=== PATIENT | male | born 1990 | race Two or more races ===

== ENCOUNTER 2019-09-20 04:47 | Inpatient (IN) | payer MEDICAID ==
[~2019-09-20] VITALS: Ht 180.3 cm; Wt 85.4 kg
[2019-09-20] VITALS (11 sets, daily range): BP systolic 125–164; BP diastolic 70–103
[2019-09-20 05:44] LABS: BASOPHILS % (AUTO) 0.2 % (0.0-2.0); EOSINOPHILS % (AUTO) 0.6 % (1.0-6.0); HEMATOCRIT 39.8 % (41-53); HEMOGLOBIN 13.8 g/dL (13.5-17.5); LYMPHOCYTES # (AUTO) 1.5 K/uL (1.0-4.8); LYMPHOCYTES % (AUTO) 15.8 % (22.0-44.0); MEAN CORPUSCULAR HGB CONC 34.7 G/dL (31.0-37.0); MEAN CORPUSCULAR VOLUME 92 fL (80-100); MONOCYTES # (AUTO) 1.1 K/uL (0.1-1.0); NEUTROPHILS # (AUTO) 6.9 K/uL (1.8-7.7); NEUTROPHILS % (AUTO) 72.4 % (40.0-70.0); PLATELET COUNT (AUTO) 161 K/uL (150-450); RED BLOOD CELL COUNT(AUTO) 4.32 MIL/uL (4.50-5.90); RED CELL DISTRIBUTION WIDTH 12.8 % (11.5-14.5)
[2019-09-20 05:47] LABS: ANION GAP 11 mmol/L (8-16); CALCIUM, TOTAL 9.9 mg/dL (8.8-10.5); CARBON DIOXIDE 25 mmol/L (22-29); CHLORIDE 105 mmol/L (98-107); CREATININE 1.06 mg/dL (0.60-1.30); GLOMERULAR FILTR. RATE CALC > 60 mL/min (>60); GLUCOSE,RANDOM 115 mg/dL (70-110); POTASSIUM 3.4 mmol/L (3.5-5.1); SODIUM SERUM 141 mmol/L (136-145); UREA NITROGEN, BLOOD 20 mg/dL (7-18)
[2019-09-20 05:53] LABS: ALANINE AMINOTRANSFERASE 36 U/L (12-78); ALBUMIN 4.6 g/dL (3.4-5.0); ALKALINE PHOSPHATASE 50 U/L (46-116); ASPARTATE AMINOTRANSFERASE 39 U/L (15-37); BILIRUBIN,TOTAL 0.7 mg/dL (0.1-1.0); TOTAL PROTEIN, SERUM 7.4 g/dL (6.4-8.2)
[2019-09-20 05:57] LABS: ACETAMINOPHEN < 2 mcg/mL (10-30)
[2019-09-20 06:06] LABS: SALICYLATE 3.8 mg/dL (2.8-20.0)
[2019-09-20] MEDS ORDERED: PROMETHAZINE HCL 25 MG TABLET PO PRN (09:30)
[2019-09-20] MEDS ORDERED: IBUPROFEN 600 MG TABLET PO PRN (09:30)
[2019-09-20] MEDS ORDERED: HydrOXYzine PAMOATE 50 MG CAPSULE PO PRN ×2 (09:30)
[2019-09-20] MEDS ORDERED: CYANOCOBALAMIN 1,000 MCG/ML VIAL IM ONE (09:30)
[2019-09-20] MEDS ORDERED: TUBERCULIN, PURIFIED PROTEIN DERIVATIVE 5 TU/0.1 ML SYRINGE ID ONE (09:30)
[2019-09-20] MEDS ORDERED: LOPERAMIDE HCL 2 MG CAPSULE PO PRN ×2 (09:30)
[2019-09-20] MEDS ORDERED: MAGNESIUM HYDROXIDE SUSPENSION 30 ML UDCUP PO PRN (09:30)
[2019-09-20] MEDS ORDERED: MAG HYDROX/AL HYDROX/SIMETH ES 30 ML SUSPENSION UDCUP PO PRN ×2 (09:30)
[2019-09-20] MEDS ORDERED: GuaiFENesin/D-METHORPHAN [SUGAR-FREE] 200-20MG/10 ML SYRUP UDCUP PO PRN (09:30)
[2019-09-20] MEDS ORDERED: CloNIDine HCL 0.1 MG TABLET PO PRN (09:30)
[2019-09-20 09:54] LABS: AMPHET/METH SCREEN,URINE POSITIVE (NEGATIVE); BARBITURATE SCREEN, URINE NEGATIVE (NEGATIVE); BENZODIAZEPINES SCREEN,URINE POSITIVE (NEGATIVE); CANNABINOID SCREEN,URINE POSITIVE (NEGATIVE); COCAINE SCREEN,URINE NEGATIVE (NEGATIVE); METHADONE SCREEN, URINE POSITIVE (NEGATIVE); OPIATE SCREEN,URINE POSITIVE (NEGATIVE); PHENCYCLIDINE SCREEN,URINE NEGATIVE (NEGATIVE)
[2019-09-20] MEDS: LORazepam 2 MG TABLET PO PRN ×2 (10:43→19:29)
[2019-09-20] MEDS ORDERED: METH10SO PO (11:10)
[2019-09-20] MEDS: CloNIDine HCL 0.1 MG TABLET PO SCH ×3 (11:51→21:07)
[2019-09-20] MEDS: METHADONE HCL 10 MG/5 ML SOLUTION ORAL.SYG PO SCH (12:04)
[2019-09-20] MEDS ORDERED: INFLUENZA VIRUS VACCINE QVS 2019-20 (3YR+)/PF 60 MCG/0.5 ML SYRINGE IM ONE (14:45)
[2019-09-20] MEDS: THIAMINE HCL 100 MG TABLET PO SCH (16:50)
[2019-09-20] MEDS: ZOLPIDEM TARTRATE 10 MG TABLET PO PRN (21:06)
[2019-09-21] VITALS (11 sets, daily range): BP systolic 112–136; BP diastolic 50–84
[2019-09-21] MEDS: CloNIDine HCL 0.1 MG TABLET PO SCH (06:00)
[2019-09-21 07:22] LABS: HEMOGLOBIN A1C 5.1 % (3.8-5.6)
[2019-09-21 07:32] LABS: CHOL/HDL RATIO 4.1 (4.2-7.3); FREE T4 (FREE THYROXINE) 1.23 ng/dL (0.76-1.46); THYROID STIMULATING HORMONE 1.54 uIU/mL (0.36-3.74)
[2019-09-21] MEDS: THIAMINE HCL 100 MG TABLET PO SCH ×2 (08:14→16:23)
[2019-09-21] MEDS: FOLIC ACID 1 MG TABLET PO SCH (08:14)
[2019-09-21] MEDS: NICOTINE 21 MG/24 HOUR PATCH TD SCH (08:14)
[2019-09-21] MEDS: MULTIVITAMINS WITH MINERALS, THERAPEUTIC TABLET PO SCH (08:14)
[2019-09-21] MEDS: METHADONE HCL 10 MG/5 ML SOLUTION ORAL.SYG PO SCH (08:14)
[2019-09-21] MEDS: LORazepam 2 MG TABLET PO PRN ×2 (10:06→17:43)
[2019-09-21] MEDS ORDERED: DIAZEPAM 10 MG TABLET PO PRN (17:15)
[2019-09-21] MEDS: GABAPENTIN 300 MG CAPSULE PO SCH (20:23)
[2019-09-22] VITALS (7 sets, daily range): BP systolic 112–144; BP diastolic 59–87
[2019-09-22] MEDS: LORazepam 2 MG TABLET PO PRN (05:06)
[2019-09-22] MEDS ORDERED: FLUoxetine HCL 10 MG CAPSULE PO SCH (09:00)
[2019-09-22] MEDS: FOLIC ACID 1 MG TABLET PO SCH (09:46)
[2019-09-22] MEDS: DIAZEPAM 10 MG TABLET PO SCH ×5 (09:46→20:42)
[2019-09-22] MEDS: MULTIVITAMINS WITH MINERALS, THERAPEUTIC TABLET PO SCH (09:46)
[2019-09-22] MEDS: THIAMINE HCL 100 MG TABLET PO SCH ×2 (09:46→17:16)
[2019-09-22] MEDS: GABAPENTIN 300 MG CAPSULE PO SCH ×5 (09:47→20:42)
[2019-09-22] MEDS: METHADONE HCL 10 MG/5 ML SOLUTION ORAL.SYG PO SCH (09:47)
[2019-09-22] MEDS: NICOTINE 21 MG/24 HOUR PATCH TD SCH (09:48)
[2019-09-22] MEDS: DIAZEPAM 10 MG TABLET PO PRN (19:44)
[2019-09-22] MEDS: ZOLPIDEM TARTRATE 10 MG TABLET PO PRN (20:42)
[2019-09-22] MEDS: GABAPENTIN 400 MG CAPSULE PO SCH (21:03)
[2019-09-23] MEDS: DIAZEPAM 10 MG TABLET PO PRN (04:38)
[2019-09-23 06:20] VITALS: BP 128/82
[2019-09-23 08:00] VITALS: BP 137/91
[2019-09-23] MEDS ORDERED: METHADONE HCL 10 MG/5 ML SOLUTION ORAL.SYG PO ONE (09:00)
[2019-09-23] MEDS: FLUoxetine HCL 10 MG CAPSULE PO SCH (09:18)
[2019-09-23] MEDS: GABAPENTIN 400 MG CAPSULE PO SCH ×4 (09:18→20:17)
[2019-09-23] MEDS: FOLIC ACID 1 MG TABLET PO SCH (09:18)
[2019-09-23] MEDS: MULTIVITAMINS WITH MINERALS, THERAPEUTIC TABLET PO SCH (09:18)
[2019-09-23] MEDS: THIAMINE HCL 100 MG TABLET PO SCH ×2 (09:18→16:25)
[2019-09-23] MEDS: DIAZEPAM 10 MG TABLET PO SCH ×4 (09:19→20:17)
[2019-09-23] MEDS: NICOTINE 21 MG/24 HOUR PATCH TD SCH (09:19)
[2019-09-23 10:57] VITALS: BP 137/91
[2019-09-23] MEDS: LORazepam 2 MG TABLET PO PRN (13:12)
[2019-09-23 13:13] VITALS: BP 137/91
[2019-09-23] MEDS: ACETAMINOPHEN 325 MG TABLET PO PRN (13:13)
[2019-09-23 18:43] VITALS: BP 134/90
[2019-09-23 20:03] VITALS: BP 134/90
[2019-09-23] MEDS: ZOLPIDEM TARTRATE 10 MG TABLET PO PRN (21:00)
[2019-09-24] MEDS ORDERED: DIAZEPAM 5 MG TABLET PO PRN (07:00)
[2019-09-24] MEDS ORDERED: METHADONE HCL 10 MG/5 ML SOLUTION ORAL.SYG PO ONE (09:00)
[2019-09-24 09:28] VITALS: BP 151/98
[2019-09-24 09:38] VITALS: BP 151/98
[2019-09-24] MEDS: BuPROPion HCL XL 150 MG ER TABLET PO SCH (09:55)
[2019-09-24] MEDS: NICOTINE 21 MG/24 HOUR PATCH TD SCH (09:55)
[2019-09-24] MEDS: FLUoxetine HCL 10 MG CAPSULE PO SCH (09:55)
[2019-09-24] MEDS: THIAMINE HCL 100 MG TABLET PO SCH ×2 (09:55→16:47)
[2019-09-24] MEDS: FOLIC ACID 1 MG TABLET PO SCH (09:55)
[2019-09-24] MEDS: MULTIVITAMINS WITH MINERALS, THERAPEUTIC TABLET PO SCH (09:55)
[2019-09-24] MEDS: GABAPENTIN 400 MG CAPSULE PO SCH ×2 (09:55→12:33)
[2019-09-24] MEDS: DIAZEPAM 5 MG TABLET PO SCH ×4 (09:58→20:18)
[2019-09-24] MEDS: OLANZapine 5 MG RAPDIS TABLET PO PRN ×2 (12:36→20:22)
[2019-09-24 16:20] VITALS: BP 113/73
[2019-09-24] MEDS: GABAPENTIN 300 MG CAPSULE PO SCH ×2 (16:48→20:19)
[2019-09-24 18:25] VITALS: BP 113/73
[2019-09-25] VITALS (8 sets, daily range): BP systolic 110–141; BP diastolic 62–77
[2019-09-25] MEDS ORDERED: METHADONE HCL 10 MG/5 ML SOLUTION ORAL.SYG PO ONE (09:00)
[2019-09-25] MEDS: BuPROPion HCL XL 150 MG ER TABLET PO SCH (09:29)
[2019-09-25] MEDS: FLUoxetine HCL 20 MG CAPSULE PO SCH (09:30)
[2019-09-25] MEDS: GABAPENTIN 300 MG CAPSULE PO SCH ×4 (09:31→20:23)
[2019-09-25] MEDS: MULTIVITAMINS WITH MINERALS, THERAPEUTIC TABLET PO SCH (09:31)
[2019-09-25] MEDS: THIAMINE HCL 100 MG TABLET PO SCH ×2 (09:32→16:27)
[2019-09-25] MEDS: FOLIC ACID 1 MG TABLET PO SCH (09:32)
[2019-09-25] MEDS: NICOTINE 21 MG/24 HOUR PATCH TD SCH (09:32)
[2019-09-25] MEDS: DIAZEPAM 5 MG TABLET PO PRN ×2 (12:18→18:24)
[2019-09-25] MEDS: ACETAMINOPHEN 325 MG TABLET PO PRN (13:19)
[2019-09-25] MEDS: OLANZapine 5 MG RAPDIS TABLET PO PRN ×2 (13:26→19:01)
[2019-09-25] MEDS: ZOLPIDEM TARTRATE 10 MG TABLET PO PRN (23:16)
[2019-09-26] VITALS (7 sets, daily range): BP systolic 115–137; BP diastolic 66–88
[2019-09-26] MEDS: DIAZEPAM 5 MG TABLET PO PRN (03:51)
[2019-09-26] MEDS: METHADONE HCL 10 MG/5 ML SOLUTION ORAL.SYG PO SCH (08:55)
[2019-09-26] MEDS: FLUoxetine HCL 20 MG CAPSULE PO SCH (08:55)
[2019-09-26] MEDS: FOLIC ACID 1 MG TABLET PO SCH (08:55)
[2019-09-26] MEDS: GABAPENTIN 300 MG CAPSULE PO SCH ×4 (08:56→20:01)
[2019-09-26] MEDS: BuPROPion HCL XL 150 MG ER TABLET PO SCH (08:56)
[2019-09-26] MEDS: MULTIVITAMINS WITH MINERALS, THERAPEUTIC TABLET PO SCH (08:57)
[2019-09-26] MEDS: THIAMINE HCL 100 MG TABLET PO SCH ×2 (08:57→16:09)
[2019-09-26] MEDS: NICOTINE 21 MG/24 HOUR PATCH TD SCH (08:58)
[2019-09-26] MEDS ORDERED: METHADONE HCL 10 MG/5 ML SOLUTION ORAL.SYG PO ONE (09:00)
[2019-09-26] MEDS: OLANZapine 5 MG RAPDIS TABLET PO PRN ×2 (12:17→17:32)
[2019-09-26] MEDS: ZOLPIDEM TARTRATE 10 MG TABLET PO PRN (21:58)
[2019-09-27] VITALS (8 sets, daily range): BP systolic 111–152; BP diastolic 56–98
[2019-09-27] MEDS: OLANZapine 5 MG RAPDIS TABLET PO PRN ×3 (01:58→17:02)
[2019-09-27] MEDS ORDERED: METHADONE HCL 10 MG/5 ML SOLUTION ORAL.SYG PO ONE (09:00)
[2019-09-27] MEDS: GABAPENTIN 300 MG CAPSULE PO SCH ×4 (10:00→20:06)
[2019-09-27] MEDS: METHADONE HCL 10 MG/5 ML SOLUTION ORAL.SYG PO SCH (10:00)
[2019-09-27] MEDS: MULTIVITAMINS WITH MINERALS, THERAPEUTIC TABLET PO SCH (10:01)
[2019-09-27] MEDS: THIAMINE HCL 100 MG TABLET PO SCH ×2 (10:01→17:02)
[2019-09-27] MEDS: FOLIC ACID 1 MG TABLET PO SCH (10:01)
[2019-09-27] MEDS: BuPROPion HCL XL 150 MG ER TABLET PO SCH (10:01)
[2019-09-27] MEDS: FLUoxetine HCL 20 MG CAPSULE PO SCH (10:01)
[2019-09-27] MEDS: NICOTINE 21 MG/24 HOUR PATCH TD SCH (10:02)
[2019-09-27] MEDS: ZOLPIDEM TARTRATE 10 MG TABLET PO PRN (20:06)
[2019-09-28 05:54] VITALS: BP 130/70
[2019-09-28 08:54] VITALS: BP 133/81
[2019-09-28] MEDS ORDERED: METHADONE HCL 10 MG/5 ML SOLUTION ORAL.SYG PO ONE (09:00)
[2019-09-28 09:15] VITALS: BP 133/81
[2019-09-28] MEDS: THIAMINE HCL 100 MG TABLET PO SCH ×2 (10:29→16:10)
[2019-09-28] MEDS: FOLIC ACID 1 MG TABLET PO SCH (10:30)
[2019-09-28] MEDS: BuPROPion HCL XL 150 MG ER TABLET PO SCH (10:30)
[2019-09-28] MEDS: FLUoxetine HCL 20 MG CAPSULE PO SCH (10:30)
[2019-09-28] MEDS: OLANZapine 5 MG RAPDIS TABLET PO PRN ×2 (10:30→14:41)
[2019-09-28] MEDS: MULTIVITAMINS WITH MINERALS, THERAPEUTIC TABLET PO SCH (10:30)
[2019-09-28] MEDS: METHADONE HCL 10 MG/5 ML SOLUTION ORAL.SYG PO SCH (10:30)
[2019-09-28] MEDS: GABAPENTIN 300 MG CAPSULE PO SCH ×4 (10:31→20:08)
[2019-09-28] MEDS: NICOTINE 21 MG/24 HOUR PATCH TD SCH (10:33)
[2019-09-28] MEDS: CloNIDine HCL 0.1 MG TABLET PO SCH ×3 (10:33→16:10)
[2019-09-28 16:46] VITALS: BP 121/71
[2019-09-28 16:49] VITALS: BP 121/71
[2019-09-28] MEDS: ZOLPIDEM TARTRATE 10 MG TABLET PO PRN (20:09)
[2019-09-28] MEDS ORDERED: HydrOXYzine HCL 50 MG TABLET PO PRN (20:30)
[2019-09-29 00:53] VITALS: BP 124/75
[2019-09-29] MEDS: FOLIC ACID 1 MG TABLET PO SCH (08:22)
[2019-09-29] MEDS: BuPROPion HCL XL 150 MG ER TABLET PO SCH (08:22)
[2019-09-29] MEDS: MULTIVITAMINS WITH MINERALS, THERAPEUTIC TABLET PO SCH (08:22)
[2019-09-29] MEDS: GABAPENTIN 300 MG CAPSULE PO SCH ×4 (08:22→20:07)
[2019-09-29] MEDS: METHADONE HCL 10 MG/5 ML SOLUTION ORAL.SYG PO SCH (08:22)
[2019-09-29] MEDS: FLUoxetine HCL 20 MG CAPSULE PO SCH (08:22)
[2019-09-29] MEDS: CloNIDine HCL 0.1 MG TABLET PO SCH ×3 (08:23→16:13)
[2019-09-29] MEDS: NICOTINE 21 MG/24 HOUR PATCH TD SCH (08:23)
[2019-09-29] MEDS: THIAMINE HCL 100 MG TABLET PO SCH ×2 (08:23→16:13)
[2019-09-29 08:42] VITALS: BP 144/71
[2019-09-29] MEDS ORDERED: METHADONE HCL 10 MG/5 ML SOLUTION ORAL.SYG PO ONE (09:00)
[2019-09-29] MEDS: OLANZapine 5 MG RAPDIS TABLET PO PRN ×2 (09:31→17:31)
[2019-09-29] MEDS: ZOLPIDEM TARTRATE 10 MG TABLET PO PRN (20:15)
[2019-09-29] MEDS: HydrOXYzine HCL 50 MG TABLET PO PRN (21:10)
[2019-09-29 22:18] VITALS: BP 113/59
[2019-09-30] MEDS: OLANZapine 5 MG RAPDIS TABLET PO PRN ×3 (00:43→22:43)
[2019-09-30 02:10] VITALS: BP 108/66
[2019-09-30] MEDS: BuPROPion HCL XL 150 MG ER TABLET PO SCH (08:21)
[2019-09-30] MEDS: METHADONE HCL 10 MG/5 ML SOLUTION ORAL.SYG PO SCH (08:21)
[2019-09-30] MEDS: MULTIVITAMINS WITH MINERALS, THERAPEUTIC TABLET PO SCH (08:21)
[2019-09-30] MEDS: GABAPENTIN 300 MG CAPSULE PO SCH ×3 (08:21→16:32)
[2019-09-30] MEDS: FOLIC ACID 1 MG TABLET PO SCH (08:21)
[2019-09-30] MEDS: THIAMINE HCL 100 MG TABLET PO SCH (08:22)
[2019-09-30] MEDS: NICOTINE 21 MG/24 HOUR PATCH TD SCH (08:24)
[2019-09-30] MEDS: FLUoxetine HCL 20 MG CAPSULE PO SCH (08:24)
[2019-09-30] MEDS: CloNIDine HCL 0.1 MG TABLET PO SCH ×3 (08:24→16:32)
[2019-09-30 08:25] VITALS: BP 136/73
[2019-09-30] MEDS ORDERED: METHADONE HCL 10 MG/5 ML SOLUTION ORAL.SYG PO ONE (09:00)
[2019-09-30] MEDS: HydrOXYzine HCL 50 MG TABLET PO PRN ×2 (16:32→22:44)
[2019-09-30 16:53] VITALS: BP 135/79
[2019-09-30] MEDS: GABAPENTIN 400 MG CAPSULE PO SCH (20:23)
[2019-09-30] MEDS: ZOLPIDEM TARTRATE 10 MG TABLET PO PRN (20:24)
[2019-10-01 03:28] VITALS: BP 130/71
[2019-10-01 08:30] VITALS: BP 111/66
[2019-10-01] MEDS ORDERED: METHADONE HCL 10 MG/5 ML SOLUTION ORAL.SYG PO ONE (09:00)
[2019-10-01] MEDS: BuPROPion HCL XL 150 MG ER TABLET PO SCH (10:24)
[2019-10-01] MEDS: FLUoxetine HCL 20 MG CAPSULE PO SCH (10:24)
[2019-10-01] MEDS: GABAPENTIN 400 MG CAPSULE PO SCH ×4 (10:24→20:39)
[2019-10-01] MEDS: MULTIVITAMINS WITH MINERALS, THERAPEUTIC TABLET PO SCH (10:24)
[2019-10-01] MEDS: OLANZapine 5 MG RAPDIS TABLET PO PRN ×2 (10:24→15:51)
[2019-10-01] MEDS: METHADONE HCL 10 MG/5 ML SOLUTION ORAL.SYG PO SCH (10:24)
[2019-10-01] MEDS: NICOTINE 21 MG/24 HOUR PATCH TD SCH (10:38)
[2019-10-01] MEDS: CloNIDine HCL 0.1 MG TABLET PO SCH ×3 (10:54→16:46)
[2019-10-01] MEDS: HydrOXYzine HCL 50 MG TABLET PO PRN ×2 (12:41→18:28)
[2019-10-01 16:26] VITALS: BP 120/77
[2019-10-01 18:28] VITALS: BP 120/77
[2019-10-01] MEDS: ACETAMINOPHEN 325 MG TABLET PO PRN (18:28)
[2019-10-01] MEDS: ZOLPIDEM TARTRATE 10 MG TABLET PO PRN (19:55)
[2019-10-02] MEDS: METHADONE HCL 10 MG/5 ML SOLUTION ORAL.SYG PO SCH (06:09)
[2019-10-02 06:29] VITALS: BP 137/89
[2019-10-02] MEDS ORDERED: METHADONE HCL 10 MG/5 ML SOLUTION ORAL.SYG PO ONE (09:00)
[2019-10-02] MEDS: NICOTINE 21 MG/24 HOUR PATCH TD SCH (09:09)
[2019-10-02] MEDS: BuPROPion HCL XL 150 MG ER TABLET PO SCH (09:09)
[2019-10-02] MEDS: MULTIVITAMINS WITH MINERALS, THERAPEUTIC TABLET PO SCH (09:09)
[2019-10-02] MEDS: FLUoxetine HCL 20 MG CAPSULE PO SCH (09:09)
[2019-10-02] MEDS: CloNIDine HCL 0.1 MG TABLET PO SCH ×3 (09:09→16:32)
[2019-10-02] MEDS: GABAPENTIN 400 MG CAPSULE PO SCH ×4 (09:09→20:11)
[2019-10-02] MEDS: OLANZapine 5 MG RAPDIS TABLET PO PRN ×3 (09:16→21:18)
[2019-10-02] MEDS: HydrOXYzine HCL 50 MG TABLET PO PRN ×3 (09:17→21:17)
[2019-10-02 10:02] VITALS: BP 120/81
[2019-10-02 16:00] VITALS: BP 127/71
[2019-10-02] MEDS: ACETAMINOPHEN 325 MG TABLET PO PRN (17:05)
[2019-10-02] MEDS: ZOLPIDEM TARTRATE 10 MG TABLET PO PRN (20:13)
[2019-10-03 05:37] VITALS: BP 122/71
[2019-10-03] MEDS: METHADONE HCL 10 MG/5 ML SOLUTION ORAL.SYG PO SCH (06:22)
[2019-10-03] MEDS: BuPROPion HCL XL 150 MG ER TABLET PO SCH (08:38)
[2019-10-03] MEDS: MULTIVITAMINS WITH MINERALS, THERAPEUTIC TABLET PO SCH (08:38)
[2019-10-03] MEDS: GABAPENTIN 400 MG CAPSULE PO SCH ×4 (08:38→20:09)
[2019-10-03] MEDS: CloNIDine HCL 0.1 MG TABLET PO SCH ×3 (08:38→16:32)
[2019-10-03] MEDS: FLUoxetine HCL 20 MG CAPSULE PO SCH (08:39)
[2019-10-03] MEDS: NICOTINE 21 MG/24 HOUR PATCH TD SCH (08:39)
[2019-10-03] MEDS: OLANZapine 5 MG RAPDIS TABLET PO PRN ×3 (08:41→19:06)
[2019-10-03] MEDS ORDERED: METHADONE HCL 10 MG/5 ML SOLUTION ORAL.SYG PO ONE (09:00)
[2019-10-03 09:20] VITALS: BP 145/78
[2019-10-03] MEDS: HydrOXYzine HCL 50 MG TABLET PO PRN ×2 (14:42→21:16)
[2019-10-03 16:12] VITALS: BP 127/80
[2019-10-03] MEDS: ZOLPIDEM TARTRATE 10 MG TABLET PO PRN (20:09)
[2019-10-04] MEDS: METHADONE HCL 10 MG/5 ML SOLUTION ORAL.SYG PO SCH (06:54)
[2019-10-04] MEDS: BuPROPion HCL XL 150 MG ER TABLET PO SCH (08:41)
[2019-10-04] MEDS: FLUoxetine HCL 20 MG CAPSULE PO SCH (08:41)
[2019-10-04] MEDS: MULTIVITAMINS WITH MINERALS, THERAPEUTIC TABLET PO SCH (08:41)
[2019-10-04] MEDS: CloNIDine HCL 0.1 MG TABLET PO SCH ×3 (08:41→15:47)
[2019-10-04] MEDS: GABAPENTIN 400 MG CAPSULE PO SCH ×4 (08:41→20:18)
[2019-10-04] MEDS: NICOTINE 21 MG/24 HOUR PATCH TD SCH (08:41)
[2019-10-04] MEDS ORDERED: METHADONE HCL 10 MG/5 ML SOLUTION ORAL.SYG PO ONE (09:00)
[2019-10-04 09:08] VITALS: BP_SYST 104; BP_SYST 145; BP_DIAS 59; BP_DIAS 99
[2019-10-04 15:48] VITALS: BP 121/79
[2019-10-04] MEDS: OLANZapine 5 MG RAPDIS TABLET PO PRN (15:48)
[2019-10-04] MEDS: HydrOXYzine HCL 50 MG TABLET PO PRN (16:49)
[2019-10-04 17:21] VITALS: BP 117/79
[2019-10-04] MEDS: ZOLPIDEM TARTRATE 10 MG TABLET PO PRN (20:20)
[2019-10-05] MEDS: METHADONE HCL 10 MG/5 ML SOLUTION ORAL.SYG PO SCH (05:58)
[2019-10-05] MEDS: MULTIVITAMINS WITH MINERALS, THERAPEUTIC TABLET PO SCH (08:19)
[2019-10-05] MEDS: GABAPENTIN 400 MG CAPSULE PO SCH ×4 (08:19→21:19)
[2019-10-05] MEDS: FLUoxetine HCL 20 MG CAPSULE PO SCH (08:19)
[2019-10-05] MEDS: CloNIDine HCL 0.1 MG TABLET PO SCH ×3 (08:19→16:21)
[2019-10-05] MEDS: BuPROPion HCL XL 150 MG ER TABLET PO SCH (08:19)
[2019-10-05] MEDS: OLANZapine 5 MG RAPDIS TABLET PO PRN ×3 (08:21→21:32)
[2019-10-05 08:50] VITALS: BP 140/84
[2019-10-05] MEDS ORDERED: METHADONE HCL 10 MG/5 ML SOLUTION ORAL.SYG PO ONE (09:00)
[2019-10-05] MEDS: NICOTINE 21 MG/24 HOUR PATCH TD SCH (09:20)
[2019-10-05 12:10] VITALS: BP 129/79
[2019-10-05] MEDS: HydrOXYzine HCL 50 MG TABLET PO PRN (12:13)
[2019-10-05 16:29] VITALS: BP 119/64
[2019-10-05] MEDS: ZOLPIDEM TARTRATE 10 MG TABLET PO PRN (21:32)
[2019-10-06] MEDS: HydrOXYzine HCL 50 MG TABLET PO PRN ×3 (01:02→23:47)
[2019-10-06 01:17] VITALS: BP 121/79
[2019-10-06] MEDS: METHADONE HCL 10 MG/5 ML SOLUTION ORAL.SYG PO SCH (06:13)
[2019-10-06 08:00] VITALS: BP 117/64
[2019-10-06] MEDS: FLUoxetine HCL 20 MG CAPSULE PO SCH (08:44)
[2019-10-06] MEDS: MULTIVITAMINS WITH MINERALS, THERAPEUTIC TABLET PO SCH (08:44)
[2019-10-06] MEDS: BuPROPion HCL XL 150 MG ER TABLET PO SCH (08:45)
[2019-10-06] MEDS: CloNIDine HCL 0.1 MG TABLET PO SCH ×3 (08:45→16:30)
[2019-10-06] MEDS: NICOTINE 21 MG/24 HOUR PATCH TD SCH (08:45)
[2019-10-06] MEDS: GABAPENTIN 400 MG CAPSULE PO SCH ×4 (08:45→21:26)
[2019-10-06] MEDS ORDERED: METHADONE HCL 10 MG/5 ML SOLUTION ORAL.SYG PO ONE (09:00)
[2019-10-06] MEDS: OLANZapine 5 MG RAPDIS TABLET PO PRN ×3 (09:43→21:27)
[2019-10-06] MEDS ORDERED: FLUO-191 PO (15:15)
[2019-10-06] MEDS ORDERED: ACAM333T7 PO (15:15)
[2019-10-06] MEDS ORDERED: BUPR-47 PO (15:15)
[2019-10-06] MEDS ORDERED: GABA-533 PO (15:15)
[2019-10-06 18:53] VITALS: BP 109/72
[2019-10-06] MEDS: ZOLPIDEM TARTRATE 10 MG TABLET PO PRN (21:27)
[2019-10-07 04:07] VITALS: BP 132/84
[2019-10-07] MEDS: METHADONE HCL 10 MG/5 ML SOLUTION ORAL.SYG PO SCH (06:02)
[2019-10-07] MEDS: NICOTINE 21 MG/24 HOUR PATCH TD SCH (08:49)
[2019-10-07] MEDS: GABAPENTIN 400 MG CAPSULE PO SCH (08:50)
[2019-10-07] MEDS: BuPROPion HCL XL 150 MG ER TABLET PO SCH (08:50)
[2019-10-07] MEDS: FLUoxetine HCL 20 MG CAPSULE PO SCH (08:50)
[2019-10-07] MEDS: MULTIVITAMINS WITH MINERALS, THERAPEUTIC TABLET PO SCH (08:50)
[2019-10-07] MEDS: CloNIDine HCL 0.1 MG TABLET PO SCH (08:50)
[2019-10-07] MEDS ORDERED: METHADONE HCL 10 MG/5 ML SOLUTION ORAL.SYG PO ONE (09:00)
== END 2019-10-07 09:00 | DRG 885 ==
LOC: EMS 04:47 → 3EI 09:52
PROVIDERS: ADMIT Psychiatry & Neurology Psychiatry; ATTEND Psychiatry & Neurology Psychiatry
DX: F33.2 Major depressive disorder, recurrent severe without psychotic features (principal); R45.851 Suicidal ideations; F20.9 Schizophrenia, unspecified; F11.10 Opioid abuse, uncomplicated; R40.0 Somnolence; R41.843 Psychomotor deficit; T50.992A Poisoning by other drugs, medicaments and biological substances, intentional self-harm, initial encounter; Z91.19 Patient's noncompliance with other medical treatment and regimen; Z59.0 Homelessness; Z87.891 Personal history of nicotine dependence; Z91.5 Personal history of self-harm; Y92.89 Other specified places as the place of occurrence of the external cause
CPT/HCPCS: 83036; 84439; 84443; 86592; 93005; 99291; G0480; G0481; J3420

== ENCOUNTER 2020-03-19 17:08 | Inpatient (IN) | payer MEDICAID ==
[~2020-03-19] VITALS: Ht 180.3 cm; Wt 90.7 kg
[~2020-03-19 17:08] MED LIST: ACAM333T7 PO; BUPR-47 PO; FLUO-191 PO; GABA-533 PO
[2020-03-19] MEDS ORDERED: BUPR75 PO (17:20)
[2020-03-19] MEDS ORDERED: DEXT5TAB16 PO (17:20)
[2020-03-19] MEDS ORDERED: CLON-592 PO (17:20)
[2020-03-19 17:43] LABS: BASOPHILS % (AUTO) 0.7 % (0.0-2.0); EOSINOPHILS % (AUTO) 2.5 % (1.0-6.0); HEMATOCRIT 41.2 % (41-53); HEMOGLOBIN 13.8 g/dL (13.5-17.5); LYMPHOCYTES # (AUTO) 1.2 K/uL (1.0-4.8); LYMPHOCYTES % (AUTO) 16.4 % (22.0-44.0); MEAN CORPUSCULAR HEMOGLOBIN 30.8 pg (26.0-34.0); MEAN CORPUSCULAR HGB CONC 33.6 G/dL (31.0-37.0); MEAN CORPUSCULAR VOLUME 92 fL (80-100); MONOCYTES # (AUTO) 0.4 K/uL (0.1-1.0); MONOCYTES % (AUTO) 6.2 % (2.0-9.0); NEUTROPHILS # (AUTO) 5.4 K/uL (1.8-7.7); NEUTROPHILS % (AUTO) 74.2 % (40.0-70.0); PLATELET COUNT (AUTO) 247 K/uL (150-450); RED BLOOD CELL COUNT(AUTO) 4.49 MIL/uL (4.50-5.90); RED CELL DISTRIBUTION WIDTH 14.4 % (11.5-14.5)
[2020-03-19 17:58] LABS: ANION GAP 10 mmol/L (8-16); CARBON DIOXIDE 27 mmol/L (22-29); CHLORIDE 104 mmol/L (98-107); CREATININE 1.23 mg/dL (0.60-1.30); GLOMERULAR FILTR. RATE CALC > 60 mL/min (>60); GLUCOSE,RANDOM 123 mg/dL (70-110); POTASSIUM 3.8 mmol/L (3.5-5.1); SODIUM SERUM 141 mmol/L (136-145); UREA NITROGEN, BLOOD 20 mg/dL (7-18)
[2020-03-19 18:12] LABS: ALANINE AMINOTRANSFERASE 54 U/L (12-78); ALBUMIN 3.9 g/dL (3.4-5.0); ALKALINE PHOSPHATASE 58 U/L (46-116); ASPARTATE AMINOTRANSFERASE 41 U/L (15-37); BILIRUBIN,TOTAL 0.3 mg/dL (0.1-1.0); TOTAL PROTEIN, SERUM 7.3 g/dL (6.4-8.2)
[2020-03-19 20:46] LABS: COVID AG,FIA SOURCE NASOPHARYNGEAL
[2020-03-19 21:00] LABS: AMPHET/METH SCREEN,URINE POSITIVE (NEGATIVE); BARBITURATE SCREEN, URINE NEGATIVE (NEGATIVE); BENZODIAZEPINES SCREEN,URINE NEGATIVE (NEGATIVE); CANNABINOID SCREEN,URINE POSITIVE (NEGATIVE); COCAINE SCREEN,URINE POSITIVE (NEGATIVE); METHADONE SCREEN, URINE POSITIVE (NEGATIVE); OPIATE SCREEN,URINE POSITIVE (NEGATIVE)
[2020-03-19 21:12] LABS: PHENCYCLIDINE SCREEN,URINE NEGATIVE (NEGATIVE)
[2020-03-19] MEDS ORDERED: INFLUENZA VIRUS VACCINE QVS 2020-21 (6MO+)/PF 60 MCG/0.5 ML SYRINGE IM ONE (23:45)
[2020-03-20 06:29] VITALS: BP 124/74
[2020-03-20] MEDS ORDERED: PETROLATUM,WHITE 28 GM JELLY TP PRN (08:00)
[2020-03-20] MEDS ORDERED: ACETAMINOPHEN 325 MG TABLET PO PRN (08:00)
[2020-03-20] MEDS ORDERED: ONDANSETRON HCL 4 MG TABLET PO PRN (08:00)
[2020-03-20] MEDS ORDERED: MAG HYDROX/AL HYDROX/SIMETH ES 30 ML SUSPENSION UDCUP PO PRN (08:00)
[2020-03-20] MEDS ORDERED: DOCUSATE SODIUM 100 MG CAPSULE PO PRN (08:00)
[2020-03-20] MEDS ORDERED: CloNIDine HCL 0.1 MG TABLET PO PRN (08:00)
[2020-03-20] MEDS ORDERED: IBUPROFEN 400 MG TABLET PO PRN (08:00)
[2020-03-20] MEDS ORDERED: LOPERAMIDE HCL 2 MG CAPSULE PO PRN (08:00)
[2020-03-20] MEDS ORDERED: GuaiFENesin/D-METHORPHAN [SUGAR-FREE] 200-20MG/10 ML SYRUP UDCUP PO PRN (08:00)
[2020-03-20] MEDS ORDERED: NICOTINE 14 MG/24 HOUR PATCH TD PRN (08:00)
[2020-03-20] MEDS ORDERED: ALBUTEROL SULFATE HFA 90 MCG/PUFF 8 GM INHALER IH PRN (08:00)
[2020-03-20 08:09] LABS: CHOL/HDL RATIO 6.8 (4.2-7.3)
[2020-03-20 08:19] VITALS: BP 134/81
[2020-03-20] MEDS: NICOTINE 14 MG/24 HOUR PATCH TD SCH (09:33)
[2020-03-20] MEDS: LORazepam 2 MG TABLET PO PRN (09:33)
[2020-03-20] MEDS ORDERED: AMPH20TA PO (11:36)
[2020-03-20] MEDS ORDERED: BUPR-93 PO (11:36)
[2020-03-20] MEDS ORDERED: GABA-1201 PO (11:36)
[2020-03-20] MEDS ORDERED: CLON-595 PO (11:36)
[2020-03-20] MEDS: BuPROPion HCL XL 150 MG ER TABLET PO SCH (11:59)
[2020-03-20] MEDS: METHADONE HCL 10 MG/5 ML SOLUTION ORAL.SYG PO SCH (12:27)
[2020-03-20 16:07] VITALS: BP 133/82
[2020-03-20] MEDS: QUEtiapine FUMARATE 200 MG TABLET PO SCH (20:42)
[2020-03-21 05:59] VITALS: BP 144/97
[2020-03-21 08:21] VITALS: BP 113/75
[2020-03-21] MEDS: BuPROPion HCL XL 150 MG ER TABLET PO SCH (08:26)
[2020-03-21] MEDS: NICOTINE 14 MG/24 HOUR PATCH TD SCH (08:26)
[2020-03-21] MEDS: METHADONE HCL 10 MG/5 ML SOLUTION ORAL.SYG PO SCH (08:48)
[2020-03-21] MEDS: LORazepam 2 MG TABLET PO PRN ×2 (09:20→16:01)
[2020-03-21 16:04] VITALS: BP 121/75
[2020-03-21] MEDS: QUEtiapine FUMARATE 200 MG TABLET PO SCH (21:02)
[2020-03-22 06:03] VITALS: BP 126/84
[2020-03-22 08:12] VITALS: BP 125/78
[2020-03-22] MEDS: METHADONE HCL 10 MG/5 ML SOLUTION ORAL.SYG PO SCH (08:32)
[2020-03-22] MEDS: BuPROPion HCL XL 150 MG ER TABLET PO SCH (08:32)
[2020-03-22] MEDS: NICOTINE 14 MG/24 HOUR PATCH TD SCH (08:35)
[2020-03-22] MEDS: LORazepam 2 MG TABLET PO PRN ×3 (08:45→20:35)
[2020-03-22 16:05] VITALS: BP 120/71
[2020-03-22] MEDS: QUEtiapine FUMARATE 200 MG TABLET PO SCH (20:08)
[2020-03-23 03:47] VITALS: BP 122/63
[2020-03-23 08:19] VITALS: BP 100/65
[2020-03-23] MEDS: BuPROPion HCL XL 150 MG ER TABLET PO SCH (08:58)
[2020-03-23] MEDS: NICOTINE 14 MG/24 HOUR PATCH TD SCH (08:59)
[2020-03-23] MEDS: METHADONE HCL 10 MG/5 ML SOLUTION ORAL.SYG PO SCH (09:01)
[2020-03-23] MEDS: LORazepam 2 MG TABLET PO PRN ×2 (09:28→20:29)
[2020-03-23] MEDS: HALOPERIDOL 5 MG TABLET PO PRN (10:36)
[2020-03-23 16:22] VITALS: BP 132/86
[2020-03-23] MEDS: QUEtiapine FUMARATE 200 MG TABLET PO SCH (20:22)
[2020-03-24 01:42] VITALS: BP 111/66
[2020-03-24 08:16] VITALS: BP 136/80
[2020-03-24] MEDS: BuPROPion HCL XL 150 MG ER TABLET PO SCH (08:49)
[2020-03-24] MEDS: NICOTINE 14 MG/24 HOUR PATCH TD SCH (08:50)
[2020-03-24] MEDS: METHADONE HCL 10 MG/5 ML SOLUTION ORAL.SYG PO SCH (08:50)
[2020-03-24] MEDS ORDERED: METHADONE HCL 10 MG/5 ML SOLUTION ORAL.SYG PO SCH (09:00)
[2020-03-24] MEDS: HALOPERIDOL 5 MG TABLET PO PRN ×3 (09:20→20:40)
[2020-03-24] MEDS: LORazepam 2 MG TABLET PO PRN ×3 (09:20→20:40)
[2020-03-24 17:38] VITALS: BP 121/64
[2020-03-24] MEDS: QUEtiapine FUMARATE 200 MG TABLET PO SCH (20:40)
[2020-03-24] MEDS: ZOLPIDEM TARTRATE 10 MG TABLET PO PRN (21:57)
[2020-03-25 01:16] VITALS: BP 115/69
[2020-03-25] MEDS: BuPROPion HCL XL 150 MG ER TABLET PO SCH (08:18)
[2020-03-25] MEDS: NICOTINE 14 MG/24 HOUR PATCH TD SCH (08:19)
[2020-03-25] MEDS: METHADONE HCL 10 MG/5 ML SOLUTION ORAL.SYG PO SCH (08:20)
[2020-03-25 08:26] VITALS: BP 130/77
[2020-03-25] MEDS: LORazepam 2 MG TABLET PO PRN ×2 (13:18→18:47)
[2020-03-25] MEDS: HALOPERIDOL 5 MG TABLET PO PRN (15:47)
[2020-03-25 16:23] VITALS: BP 132/68
[2020-03-25] MEDS: QUEtiapine FUMARATE 200 MG TABLET PO SCH (20:08)
[2020-03-25] MEDS: ZOLPIDEM TARTRATE 10 MG TABLET PO PRN (21:35)
[2020-03-26 03:03] VITALS: BP 138/94
[2020-03-26 08:48] VITALS: BP 128/76
[2020-03-26] MEDS: BuPROPion HCL XL 150 MG ER TABLET PO SCH (09:09)
[2020-03-26] MEDS: METHADONE HCL 10 MG/5 ML SOLUTION ORAL.SYG PO SCH (09:10)
[2020-03-26] MEDS: NICOTINE 14 MG/24 HOUR PATCH TD SCH (09:10)
[2020-03-26] MEDS: LORazepam 2 MG TABLET PO PRN ×2 (10:07→16:55)
[2020-03-26] MEDS: HALOPERIDOL 5 MG TABLET PO PRN (10:59)
[2020-03-26 16:19] VITALS: BP 121/79
[2020-03-26] MEDS: QUEtiapine FUMARATE 200 MG TABLET PO SCH (20:11)
[2020-03-26] MEDS: ZOLPIDEM TARTRATE 10 MG TABLET PO PRN (21:05)
[2020-03-27 00:28] VITALS: BP 102/69
[2020-03-27 08:36] VITALS: BP 120/60
[2020-03-27] MEDS: NICOTINE 14 MG/24 HOUR PATCH TD SCH (08:59)
[2020-03-27] MEDS: BuPROPion HCL XL 150 MG ER TABLET PO SCH (09:00)
[2020-03-27] MEDS: LORazepam 2 MG TABLET PO PRN ×2 (09:09→16:40)
[2020-03-27] MEDS: METHADONE HCL 10 MG/5 ML SOLUTION ORAL.SYG PO SCH (09:10)
[2020-03-27] MEDS: HALOPERIDOL 5 MG TABLET PO PRN (10:46)
[2020-03-27 16:41] VITALS: BP 111/60
[2020-03-27] MEDS: QUEtiapine FUMARATE 200 MG TABLET PO SCH (20:29)
[2020-03-27] MEDS: ZOLPIDEM TARTRATE 10 MG TABLET PO PRN (21:47)
[2020-03-28 00:46] VITALS: BP 102/65
[2020-03-28] MEDS: BuPROPion HCL XL 150 MG ER TABLET PO SCH (08:56)
[2020-03-28] MEDS: NICOTINE 14 MG/24 HOUR PATCH TD SCH (08:56)
[2020-03-28] MEDS: METHADONE HCL 10 MG/5 ML SOLUTION ORAL.SYG PO SCH (08:57)
[2020-03-28] MEDS: LORazepam 2 MG TABLET PO PRN ×2 (09:56→14:47)
[2020-03-28] MEDS: HALOPERIDOL 5 MG TABLET PO PRN ×2 (12:16→17:14)
[2020-03-28] MEDS: GABAPENTIN 400 MG CAPSULE PO SCH ×2 (12:16→16:21)
[2020-03-28 16:15] VITALS: BP 121/83
[2020-03-28] MEDS: QUEtiapine FUMARATE 200 MG TABLET PO SCH (20:15)
[2020-03-29 06:09] VITALS: BP 124/79
[2020-03-29 08:11] VITALS: BP 107/66
[2020-03-29] MEDS: METHADONE HCL 10 MG/5 ML SOLUTION ORAL.SYG PO SCH (10:00)
[2020-03-29] MEDS: GABAPENTIN 400 MG CAPSULE PO SCH ×3 (10:02→17:11)
[2020-03-29] MEDS: BuPROPion HCL XL 150 MG ER TABLET PO SCH (10:02)
[2020-03-29] MEDS: NICOTINE 14 MG/24 HOUR PATCH TD SCH (10:03)
[2020-03-29] MEDS: LORazepam 2 MG TABLET PO PRN ×2 (10:56→17:11)
[2020-03-29] MEDS: HALOPERIDOL 5 MG TABLET PO PRN (13:13)
[2020-03-29 16:44] VITALS: BP 121/79
[2020-03-29] MEDS: MAGNESIUM HYDROXIDE SUSPENSION 30 ML UDCUP PO PRN (17:12)
[2020-03-29] MEDS: QUEtiapine FUMARATE 200 MG TABLET PO SCH (21:24)
[2020-03-29] MEDS: ZOLPIDEM TARTRATE 10 MG TABLET PO PRN (21:29)
[2020-03-30 00:28] VITALS: BP 114/64
[2020-03-30 08:10] VITALS: BP 114/69
[2020-03-30] MEDS: BuPROPion HCL XL 150 MG ER TABLET PO SCH (09:47)
[2020-03-30] MEDS: GABAPENTIN 400 MG CAPSULE PO SCH ×3 (09:48→17:12)
[2020-03-30] MEDS: NICOTINE 14 MG/24 HOUR PATCH TD SCH (09:49)
[2020-03-30] MEDS: LORazepam 2 MG TABLET PO PRN ×2 (10:15→16:55)
[2020-03-30 16:18] VITALS: BP 135/88
[2020-03-30] MEDS: METHADONE HCL 10 MG/5 ML SOLUTION ORAL.SYG PO SCH (16:20)
[2020-03-30] MEDS: HALOPERIDOL 5 MG TABLET PO PRN (17:12)
[2020-03-30] MEDS: QUEtiapine FUMARATE 200 MG TABLET PO SCH (20:28)
[2020-03-30] MEDS: ZOLPIDEM TARTRATE 10 MG TABLET PO PRN (20:29)
[2020-03-31 00:46] VITALS: BP 121/62
[2020-03-31] MEDS: BuPROPion HCL XL 150 MG ER TABLET PO SCH (08:32)
[2020-03-31] MEDS: GABAPENTIN 400 MG CAPSULE PO SCH ×3 (08:32→16:50)
[2020-03-31] MEDS: METHADONE HCL 10 MG/5 ML SOLUTION ORAL.SYG PO SCH (08:33)
[2020-03-31] MEDS: NICOTINE 14 MG/24 HOUR PATCH TD SCH (08:33)
[2020-03-31 08:34] VITALS: BP 135/77
[2020-03-31] MEDS: LORazepam 2 MG TABLET PO PRN ×2 (09:55→16:50)
[2020-03-31] MEDS: HALOPERIDOL 5 MG TABLET PO PRN (11:25)
[2020-03-31] MEDS: MAGNESIUM HYDROXIDE SUSPENSION 30 ML UDCUP PO PRN (13:02)
[2020-03-31 16:08] VITALS: BP 112/66
[2020-03-31] MEDS: QUEtiapine FUMARATE 200 MG TABLET PO SCH (20:27)
[2020-03-31] MEDS: ZOLPIDEM TARTRATE 10 MG TABLET PO PRN (21:18)
[2020-04-01 00:03] VITALS: BP 135/87
[2020-04-01] MEDS: LORazepam 2 MG TABLET PO PRN ×3 (00:03→17:01)
[2020-04-01 09:23] VITALS: BP 124/74
[2020-04-01] MEDS: METHADONE HCL 10 MG/5 ML SOLUTION ORAL.SYG PO SCH (09:50)
[2020-04-01] MEDS: NICOTINE 14 MG/24 HOUR PATCH TD SCH (09:51)
[2020-04-01] MEDS: GABAPENTIN 400 MG CAPSULE PO SCH ×3 (09:51→16:31)
[2020-04-01] MEDS: BuPROPion HCL XL 150 MG ER TABLET PO SCH (09:51)
[2020-04-01] MEDS: MAGNESIUM HYDROXIDE SUSPENSION 30 ML UDCUP PO PRN (10:47)
[2020-04-01] MEDS: HALOPERIDOL 5 MG TABLET PO PRN (15:56)
[2020-04-01 16:18] VITALS: BP 139/87
[2020-04-01] MEDS: QUEtiapine FUMARATE 200 MG TABLET PO SCH (20:11)
[2020-04-01] MEDS: ZOLPIDEM TARTRATE 10 MG TABLET PO PRN (21:23)
[2020-04-02 02:04] VITALS: BP 120/70
[2020-04-02 08:14] VITALS: BP 112/55
[2020-04-02] MEDS ORDERED: MAGNESIUM CITRATE 300 ML ORAL SOLUTION PO SCH (09:00)
[2020-04-02] MEDS: GABAPENTIN 400 MG CAPSULE PO SCH ×3 (09:52→16:16)
[2020-04-02] MEDS: BuPROPion HCL XL 150 MG ER TABLET PO SCH (09:52)
[2020-04-02] MEDS: NICOTINE 14 MG/24 HOUR PATCH TD SCH (09:53)
[2020-04-02] MEDS: METHADONE HCL 10 MG/5 ML SOLUTION ORAL.SYG PO SCH (09:54)
[2020-04-02] MEDS: LORazepam 2 MG TABLET PO PRN ×2 (10:59→16:16)
[2020-04-02] MEDS: HALOPERIDOL 5 MG TABLET PO PRN (13:58)
[2020-04-02] MEDS: MAGNESIUM CITRATE 300 ML ORAL SOLUTION PO PRN (13:58)
[2020-04-02 16:08] VITALS: BP 132/84
[2020-04-02] MEDS: QUEtiapine FUMARATE 200 MG TABLET PO SCH (20:09)
[2020-04-02] MEDS: ZOLPIDEM TARTRATE 10 MG TABLET PO PRN (23:01)
[2020-04-03] MEDS: LORazepam 2 MG TABLET PO PRN ×4 (04:46→18:08)
[2020-04-03 04:48] VITALS: BP 136/89
[2020-04-03] MEDS: NICOTINE 14 MG/24 HOUR PATCH TD SCH (08:27)
[2020-04-03] MEDS: GABAPENTIN 400 MG CAPSULE PO SCH ×3 (08:27→16:57)
[2020-04-03] MEDS: BuPROPion HCL XL 150 MG ER TABLET PO SCH (08:27)
[2020-04-03] MEDS: METHADONE HCL 10 MG/5 ML SOLUTION ORAL.SYG PO SCH (08:29)
[2020-04-03 16:15] VITALS: BP 136/88
[2020-04-03] MEDS: MAGNESIUM CITRATE 300 ML ORAL SOLUTION PO PRN (17:09)
[2020-04-03] MEDS: HALOPERIDOL 5 MG TABLET PO PRN (17:11)
[2020-04-03] MEDS: QUEtiapine FUMARATE 200 MG TABLET PO SCH (20:39)
[2020-04-03] MEDS: ZOLPIDEM TARTRATE 10 MG TABLET PO PRN (21:53)
[2020-04-04 00:56] VITALS: BP 102/72
[2020-04-04] MEDS: LORazepam 2 MG TABLET PO PRN ×5 (04:34→22:34)
[2020-04-04 08:56] VITALS: BP 131/70
[2020-04-04] MEDS: BuPROPion HCL XL 150 MG ER TABLET PO SCH (09:54)
[2020-04-04] MEDS: METHADONE HCL 10 MG/5 ML SOLUTION ORAL.SYG PO SCH (09:54)
[2020-04-04] MEDS: GABAPENTIN 400 MG CAPSULE PO SCH ×3 (09:55→16:50)
[2020-04-04] MEDS: NICOTINE 14 MG/24 HOUR PATCH TD SCH (09:55)
[2020-04-04] MEDS: MAGNESIUM CITRATE 300 ML ORAL SOLUTION PO PRN (11:01)
[2020-04-04 16:25] VITALS: BP 115/68
[2020-04-04] MEDS: QUEtiapine FUMARATE 100 MG TABLET PO SCH (20:22)
[2020-04-04] MEDS: ZOLPIDEM TARTRATE 10 MG TABLET PO PRN (20:25)
[2020-04-05 06:07] VITALS: BP 130/69
[2020-04-05 08:14] VITALS: BP 127/67
[2020-04-05] MEDS: GABAPENTIN 400 MG CAPSULE PO SCH ×3 (08:42→16:16)
[2020-04-05] MEDS: BuPROPion HCL XL 150 MG ER TABLET PO SCH (08:42)
[2020-04-05] MEDS: NICOTINE 21 MG/24 HOUR PATCH TD SCH (08:43)
[2020-04-05] MEDS: METHADONE HCL 10 MG/5 ML SOLUTION ORAL.SYG PO SCH (08:45)
[2020-04-05] MEDS: LORazepam 2 MG TABLET PO PRN ×2 (10:49→15:28)
[2020-04-05] MEDS: HALOPERIDOL 5 MG TABLET PO PRN (13:12)
[2020-04-05 16:21] VITALS: BP 142/89
[2020-04-05] MEDS: QUEtiapine FUMARATE 100 MG TABLET PO SCH (20:23)
[2020-04-05] MEDS: ZOLPIDEM TARTRATE 10 MG TABLET PO PRN (22:03)
[2020-04-06 05:33] VITALS: BP 131/79
[2020-04-06] MEDS: BuPROPion HCL XL 150 MG ER TABLET PO SCH (08:12)
[2020-04-06] MEDS: NICOTINE 21 MG/24 HOUR PATCH TD SCH (08:12)
[2020-04-06] MEDS: GABAPENTIN 400 MG CAPSULE PO SCH (08:12)
[2020-04-06] MEDS: METHADONE HCL 10 MG/5 ML SOLUTION ORAL.SYG PO SCH (08:13)
[2020-04-06] MEDS ORDERED: QUET200T PO (09:28)
[2020-04-06 09:43] VITALS: BP 133/82
== END 2020-04-06 12:19 | disposition home or self-care (01) | DRG 751 ==
LOC: EMS 17:08 → B2S 21:24 → B3A 23:50 → B2S 03-23 13:19
DX: F33.3 Major depressive disorder, recurrent, severe with psychotic symptoms (principal); G40.909 Epilepsy, unspecified, not intractable, without status epilepticus; F15.10 Other stimulant abuse, uncomplicated; F14.10 Cocaine abuse, uncomplicated; F11.20 Opioid dependence, uncomplicated; E78.5 Hyperlipidemia, unspecified; K59.00 Constipation, unspecified; R45.851 Suicidal ideations; F17.210 Nicotine dependence, cigarettes, uncomplicated; Z20.828 Contact with and (suspected) exposure to other viral communicable diseases; Z59.0 Homelessness; Z79.899 Other long term (current) drug therapy
CPT/HCPCS: 87426; 90686; G0480

== ENCOUNTER 2020-04-20 13:01 | Inpatient (IN) | payer MEDICAID ==
[~2020-04-20] VITALS: Ht 180.3 cm; Wt 91.2 kg
[~2020-04-20 13:01] MED LIST changes: -ACAM333T7 PO; -BUPR-47 PO; +BUPR-93 PO; -FLUO-191 PO; +GABA-1201 PO; -GABA-533 PO; +QUET200T PO
[2020-04-20] MEDS ORDERED: CLON0.2T PO (13:11)
[2020-04-20 14:55] LABS: BASOPHILS % (AUTO) 0.5 % (0.0-2.0); EOSINOPHILS % (AUTO) 1.1 % (1.0-6.0); HEMATOCRIT 38.4 % (41-53); HEMOGLOBIN 13.8 g/dL (13.5-17.5); LYMPHOCYTES % (AUTO) 25.4 % (22.0-44.0); MEAN CORPUSCULAR HEMOGLOBIN 32.2 pg (26.0-34.0); MEAN CORPUSCULAR VOLUME 89 fL (80-100); MONOCYTES # (AUTO) 0.9 K/uL (0.1-1.0); MONOCYTES % (AUTO) 11.4 % (2.0-9.0); NEUTROPHILS # (AUTO) 4.8 K/uL (1.8-7.7); NEUTROPHILS % (AUTO) 61.6 % (40.0-70.0); PLATELET COUNT (AUTO) 189 K/uL (150-450); RED CELL DISTRIBUTION WIDTH 13.6 % (11.5-14.5)
[2020-04-20 15:07] LABS: ANION GAP 10 mmol/L (8-16); CALCIUM, TOTAL 9.1 mg/dL (8.8-10.5); CARBON DIOXIDE 27 mmol/L (22-29); CHLORIDE 107 mmol/L (98-107); CREATININE 1.02 mg/dL (0.60-1.30); GLOMERULAR FILTR. RATE CALC > 60 mL/min (>60); GLUCOSE,RANDOM 89 mg/dL (70-110); POTASSIUM 3.5 mmol/L (3.5-5.1); SODIUM SERUM 144 mmol/L (136-145); UREA NITROGEN, BLOOD 16 mg/dL (7-18)
[2020-04-20 15:12] LABS: ALANINE AMINOTRANSFERASE 36 U/L (12-78); ALBUMIN 4.1 g/dL (3.4-5.0); ALKALINE PHOSPHATASE 64 U/L (46-116); ASPARTATE AMINOTRANSFERASE 89 U/L (15-37); BILIRUBIN,TOTAL 0.7 mg/dL (0.1-1.0); TOTAL PROTEIN, SERUM 7.5 g/dL (6.4-8.2)
[2020-04-20 15:42] LABS: COVID AG,FIA SOURCE NASAL SWAB
[2020-04-20 19:30] VITALS: BP 144/98
[2020-04-20] MEDS: LORazepam 2 MG TABLET PO PRN (19:58)
[2020-04-20] MEDS: ZOLPIDEM TARTRATE 10 MG TABLET PO PRN (20:24)
[2020-04-20] MEDS ORDERED: INFLUENZA VIRUS VACCINE QVS 2020-21 (6MO+)/PF 60 MCG/0.5 ML SYRINGE IM ONE (20:30)
[2020-04-21 06:13] VITALS: BP 114/72
[2020-04-21] MEDS: LORazepam 2 MG TABLET PO PRN ×3 (06:39→16:42)
[2020-04-21] MEDS ORDERED: ACETAMINOPHEN 325 MG TABLET PO PRN (06:45)
[2020-04-21] MEDS ORDERED: ONDANSETRON HCL 4 MG TABLET PO PRN (06:45)
[2020-04-21] MEDS ORDERED: DOCUSATE SODIUM 100 MG CAPSULE PO PRN (06:45)
[2020-04-21] MEDS ORDERED: PETROLATUM,WHITE 28 GM JELLY TP PRN (06:45)
[2020-04-21] MEDS ORDERED: GuaiFENesin/D-METHORPHAN [SUGAR-FREE] 200-20MG/10 ML SYRUP UDCUP PO PRN (06:45)
[2020-04-21] MEDS ORDERED: MAG HYDROX/AL HYDROX/SIMETH ES 30 ML SUSPENSION UDCUP PO PRN (06:45)
[2020-04-21] MEDS ORDERED: LOPERAMIDE HCL 2 MG CAPSULE PO PRN (06:45)
[2020-04-21] MEDS ORDERED: MAGNESIUM HYDROXIDE SUSPENSION 30 ML UDCUP PO PRN (06:45)
[2020-04-21] MEDS ORDERED: CloNIDine HCL 0.1 MG TABLET PO PRN (06:45)
[2020-04-21] MEDS ORDERED: ALBUTEROL SULFATE HFA 90 MCG/PUFF 8 GM INHALER IH PRN (06:45)
[2020-04-21 08:09] VITALS: BP 128/93
[2020-04-21] MEDS: NICOTINE 14 MG/24 HOUR PATCH TD PRN (10:47)
[2020-04-21] MEDS: IBUPROFEN 400 MG TABLET PO PRN (10:55)
[2020-04-21] MEDS ORDERED: QUET100T PO (12:30)
[2020-04-21] MEDS: BuPROPion HCL XL 150 MG ER TABLET PO SCH (12:55)
[2020-04-21] MEDS: GABAPENTIN 400 MG CAPSULE PO SCH ×2 (12:55→16:42)
[2020-04-21] MEDS ORDERED: METHADONE HCL 10 MG/5 ML SOLUTION ORAL.SYG PO SCH (13:15)
[2020-04-21] MEDS ORDERED: METHADONE HCL 10 MG TABLET PO SCH (13:45)
[2020-04-21] MEDS: METHADONE HCL 10 MG/5 ML SOLUTION ORAL.SYG PO SCH (14:05)
[2020-04-21 18:31] VITALS: BP 112/64
[2020-04-21] MEDS: QUEtiapine FUMARATE 200 MG TABLET PO SCH (20:43)
[2020-04-21] MEDS: ZOLPIDEM TARTRATE 10 MG TABLET PO PRN (20:43)
[2020-04-22 06:14] VITALS: BP 119/78
[2020-04-22 08:21] VITALS: BP 113/71
[2020-04-22] MEDS ORDERED: METHADONE HCL 10 MG TABLET PO SCH (09:00)
[2020-04-22] MEDS: NICOTINE 14 MG/24 HOUR PATCH TD PRN (09:06)
[2020-04-22] MEDS: GABAPENTIN 400 MG CAPSULE PO SCH ×3 (09:08→16:50)
[2020-04-22] MEDS: BuPROPion HCL XL 150 MG ER TABLET PO SCH (09:08)
[2020-04-22] MEDS: METHADONE HCL 10 MG/5 ML SOLUTION ORAL.SYG PO SCH (09:09)
[2020-04-22] MEDS: LORazepam 2 MG TABLET PO PRN ×2 (13:06→17:06)
[2020-04-22 13:40] VITALS: BP 129/83
[2020-04-22 13:42] VITALS: BP 129/83
[2020-04-22] MEDS: IBUPROFEN 400 MG TABLET PO PRN (13:42)
[2020-04-22 17:30] VITALS: BP 132/93
[2020-04-22] MEDS: HALOPERIDOL 5 MG TABLET PO PRN (17:56)
[2020-04-22] MEDS: QUEtiapine FUMARATE 200 MG TABLET PO SCH (21:18)
[2020-04-23 06:39] VITALS: BP 128/83
[2020-04-23 09:03] VITALS: BP 114/64
[2020-04-23] MEDS: BuPROPion HCL XL 150 MG ER TABLET PO SCH (09:32)
[2020-04-23] MEDS: GABAPENTIN 400 MG CAPSULE PO SCH ×3 (09:32→16:19)
[2020-04-23] MEDS: METHADONE HCL 10 MG/5 ML SOLUTION ORAL.SYG PO SCH (09:33)
[2020-04-23] MEDS: NICOTINE 14 MG/24 HOUR PATCH TD PRN (09:49)
[2020-04-23 12:35] VITALS: BP 119/68
[2020-04-23] MEDS: IBUPROFEN 400 MG TABLET PO PRN (12:35)
[2020-04-23] MEDS: LORazepam 2 MG TABLET PO PRN ×3 (12:37→20:47)
[2020-04-23 16:40] VITALS: BP 109/61
[2020-04-23] MEDS: QUEtiapine FUMARATE 200 MG TABLET PO SCH (20:47)
[2020-04-23] MEDS: ZOLPIDEM TARTRATE 10 MG TABLET PO PRN (21:53)
[2020-04-24] MEDS: METHADONE HCL 10 MG/5 ML SOLUTION ORAL.SYG PO SCH (08:20)
[2020-04-24] MEDS: BuPROPion HCL XL 150 MG ER TABLET PO SCH (08:23)
[2020-04-24] MEDS: GABAPENTIN 400 MG CAPSULE PO SCH ×3 (08:23→16:41)
[2020-04-24] MEDS: LORazepam 2 MG TABLET PO PRN ×3 (08:23→16:41)
[2020-04-24] MEDS: NICOTINE 21 MG/24 HOUR PATCH TD SCH (09:23)
[2020-04-24] MEDS: HALOPERIDOL 5 MG TABLET PO PRN ×2 (11:51→16:41)
[2020-04-24 16:15] VITALS: BP 125/61
[2020-04-24] MEDS: QUEtiapine FUMARATE 200 MG TABLET PO SCH (20:33)
[2020-04-24] MEDS: ZOLPIDEM TARTRATE 10 MG TABLET PO PRN (20:33)
[2020-04-25 08:25] VITALS: BP 119/70
[2020-04-25] MEDS: METHADONE HCL 10 MG/5 ML SOLUTION ORAL.SYG PO SCH (08:31)
[2020-04-25] MEDS: NICOTINE 21 MG/24 HOUR PATCH TD SCH (08:31)
[2020-04-25] MEDS: GABAPENTIN 400 MG CAPSULE PO SCH ×3 (08:31→16:45)
[2020-04-25] MEDS: BuPROPion HCL XL 150 MG ER TABLET PO SCH (08:31)
[2020-04-25] MEDS: LORazepam 2 MG TABLET PO PRN ×3 (09:38→18:02)
[2020-04-25] MEDS: HALOPERIDOL 5 MG TABLET PO PRN (11:44)
[2020-04-25 16:48] VITALS: BP 120/73
[2020-04-25] MEDS: ZOLPIDEM TARTRATE 10 MG TABLET PO PRN (20:20)
[2020-04-25] MEDS: QUEtiapine FUMARATE 200 MG TABLET PO SCH (20:20)
[2020-04-26 05:22] VITALS: BP 118/70
[2020-04-26 08:07] VITALS: BP 107/76
[2020-04-26] MEDS: GABAPENTIN 400 MG CAPSULE PO SCH ×3 (09:07→16:41)
[2020-04-26] MEDS: BuPROPion HCL XL 150 MG ER TABLET PO SCH (09:07)
[2020-04-26] MEDS: NICOTINE 21 MG/24 HOUR PATCH TD SCH (09:26)
[2020-04-26] MEDS: LORazepam 2 MG TABLET PO PRN ×3 (09:26→17:51)
[2020-04-26] MEDS: HALOPERIDOL 5 MG TABLET PO PRN (10:26)
[2020-04-26] MEDS ORDERED: QUET200T29 PO (12:03)
[2020-04-26] MEDS ORDERED: BUPR-47 PO (12:03)
[2020-04-26] MEDS ORDERED: GABA-1201 PO (12:03)
[2020-04-26] MEDS: METHADONE HCL 10 MG/5 ML SOLUTION ORAL.SYG PO SCH (12:34)
[2020-04-26 16:11] VITALS: BP 132/78
[2020-04-26] MEDS: QUEtiapine FUMARATE 200 MG TABLET PO SCH (20:37)
[2020-04-26] MEDS: ZOLPIDEM TARTRATE 10 MG TABLET PO PRN (20:37)
[2020-04-27 06:30] VITALS: BP 104/66
[2020-04-27 08:11] VITALS: BP 120/64
[2020-04-27] MEDS: NICOTINE 21 MG/24 HOUR PATCH TD SCH (08:36)
[2020-04-27] MEDS: BuPROPion HCL XL 150 MG ER TABLET PO SCH (08:36)
[2020-04-27] MEDS: GABAPENTIN 400 MG CAPSULE PO SCH (08:37)
[2020-04-27] MEDS ORDERED: METHADONE HCL 10 MG TABLET PO SCH ×2 (09:00→10:15)
[2020-04-27] MEDS ORDERED: [UNRECOGNIZED DRUG - OTHER] PO (10:08)
[2020-04-27] MEDS: IBUPROFEN 400 MG TABLET PO PRN (10:09)
== END 2020-04-27 10:30 | DRG 751 ==
LOC: EMS 13:06 → B3A 16:33
DX: F33.2 Major depressive disorder, recurrent severe without psychotic features (principal); R45.851 Suicidal ideations; Z59.0 Homelessness; F11.20 Opioid dependence, uncomplicated; F15.10 Other stimulant abuse, uncomplicated; F14.10 Cocaine abuse, uncomplicated; I10 Essential (primary) hypertension; G40.909 Epilepsy, unspecified, not intractable, without status epilepticus; F12.90 Cannabis use, unspecified, uncomplicated; F41.0 Panic disorder [episodic paroxysmal anxiety]; F98.8 Other specified behavioral and emotional disorders with onset usually occurring in childhood and adolescence; F17.200 Nicotine dependence, unspecified, uncomplicated; F10.10 Alcohol abuse, uncomplicated; Y90.9 Presence of alcohol in blood, level not specified; Z79.899 Other long term (current) drug therapy; Z20.828 Contact with and (suspected) exposure to other viral communicable diseases; Z23 Encounter for immunization
CPT/HCPCS: 87426; 90686; G0480

== ENCOUNTER 2022-05-09 09:11 | Emergency (ER) | payer MEDICAID ==
[~2022-05-09] VITALS: Ht 180.3 cm; Wt 77.3 kg
[~2022-05-09 09:11] MED LIST changes: +BUPR-49 PO; -BUPR-93 PO; -QUET200T PO; +QUET200T30 PO; +[UNRECOGNIZED DRUG - OTHER] PO
[2022-05-09 09:12] VITALS: BP 133/72
[2022-05-09] MEDS ORDERED: CLON0.1T2 PO (09:21)
[2022-05-09] MEDS ORDERED: METO25 PO (09:21)
[2022-05-09 10:07] LABS: BASOPHILS % (AUTO) 0.4 % (0.0-2.0); EOSINOPHILS % (AUTO) 2.8 % (1.0-6.0); HEMATOCRIT 50.3 % (41-53); LYMPHOCYTES # (AUTO) 1.9 K/uL (1.0-4.8); LYMPHOCYTES % (AUTO) 31.9 % (22.0-44.0); MEAN CORPUSCULAR HEMOGLOBIN 31.9 pg (26.0-34.0); MEAN CORPUSCULAR HGB CONC 33.7 G/dL (31.0-37.0); MEAN CORPUSCULAR VOLUME 95 fL (80-100); MONOCYTES # (AUTO) 0.7 K/uL (0.1-1.0); MONOCYTES % (AUTO) 11.6 % (2.0-9.0); NEUTROPHILS # (AUTO) 3.1 K/uL (1.8-7.7); NEUTROPHILS % (AUTO) 53.3 % (40.0-70.0); PLATELET COUNT (AUTO) 174 K/uL (150-450); RED BLOOD CELL COUNT(AUTO) 5.31 MIL/uL (4.50-5.90)
[2022-05-09 10:16] LABS: ANION GAP 4 mmol/L (8-16); CALCIUM, TOTAL 9.4 mg/dL (8.8-10.5); CARBON DIOXIDE 34 mmol/L (22-29); CHLORIDE 104 mmol/L (98-107); CREATININE 1.11 mg/dL (0.60-1.30); GLOMERULAR FILTR. RATE CALC > 60 mL/min (>60); GLUCOSE,RANDOM 83 mg/dL (70-110); POTASSIUM 4.2 mmol/L (3.5-5.1); SODIUM SERUM 142 mmol/L (136-145); UREA NITROGEN, BLOOD 13 mg/dL (7-18)
[2022-05-09 10:21] LABS: ALANINE AMINOTRANSFERASE 42 U/L (12-78); ALBUMIN 4.4 g/dL (3.4-5.0); ALKALINE PHOSPHATASE 45 U/L (46-116); ASPARTATE AMINOTRANSFERASE 39 U/L (15-37); BILIRUBIN,TOTAL 0.7 mg/dL (0.1-1.0); TOTAL PROTEIN, SERUM 7.8 g/dL (6.4-8.2)
[2022-05-09 10:45] LABS: AMPHET/METH SCREEN,URINE POSITIVE (NEGATIVE); BARBITURATE SCREEN, URINE NEGATIVE (NEGATIVE); BENZODIAZEPINES SCREEN,URINE POSITIVE (NEGATIVE); CANNABINOID SCREEN,URINE POSITIVE (NEGATIVE); COCAINE SCREEN,URINE NEGATIVE (NEGATIVE); METHADONE SCREEN, URINE POSITIVE (NEGATIVE); OPIATE SCREEN,URINE POSITIVE (NEGATIVE); PHENCYCLIDINE SCREEN,URINE NEGATIVE (NEGATIVE)
[2022-05-09 11:06] LABS: COVID AG,FIA SOURCE NASOPHARYNGEAL
== END 2022-05-09 14:53 | disposition home or self-care (01) ==
LOC: EMS 09:15
DX: F32.3 Major depressive disorder, single episode, severe with psychotic features (principal); I10 Essential (primary) hypertension; F17.210 Nicotine dependence, cigarettes, uncomplicated; F12.90 Cannabis use, unspecified, uncomplicated; F55.8 Abuse of other non-psychoactive substances; Z20.822 Contact with and (suspected) exposure to COVID-19
CPT/HCPCS: 99284; 87426; 80053; 85025; 36415; 80307 ×2; G0480